=== PATIENT | female | born 1995 | race African-American/Black ===

== ENCOUNTER 2019-03-01 05:15 | Emergency (ER) | payer MEDICAID, OTHER ==
[~2019-03-01] VITALS: Ht 170.2 cm; Wt 68.0 kg
[2019-03-01 05:19] VITALS: BP 117/81
== END 2019-03-01 06:16 | disposition left against medical advice (07) ==
LOC: ER 05:15
DX: Z53.21 Procedure and treatment not carried out due to patient leaving prior to being seen by health care provider (principal)